=== PATIENT | male | born 1990 | race Caucasian/White ===

== ENCOUNTER 2017-04-05 12:41 | Emergency (ER) | payer MEDICAID ==
[~2017-04-05] VITALS: Ht 177.8 cm; Wt 104.0 kg
[2017-04-05] MEDS ORDERED: KETOROLAC 30MG/ML VIAL IV STA (13:59)
[2017-04-05] MEDS ORDERED: SODIUM CHLORIDE 0.9% 1,000 ML IV ONE (13:59)
[2017-04-05] MEDS ORDERED: METOCLOPRAMIDE HCL 10MG/2ML VIAL IV ONE (14:00)
[2017-04-05 14:49] VITALS: BP 117/52
== END 2017-04-05 16:03 | disposition home or self-care (01) ==
LOC: ER 12:41
DX: R51 Headache (principal)
CPT/HCPCS: 96374; 96375; 99284; J1885; J2765; J7030

== ENCOUNTER 2018-03-15 19:12 | Emergency (ER) | payer SELFPAY ==
[~2018-03-15] VITALS: Ht 180.3 cm; Wt 102.0 kg
[2018-03-15] MEDS ORDERED: METOCLOPRAMIDE HCL 5MG TABLET PO ONE (23:45)
[2018-03-15] MEDS ORDERED: KETOROLAC 60MG/2ML VIAL IM ONE (23:45)
[2018-03-16 01:02] VITALS: BP 140/68
== END 2018-03-16 01:03 | disposition home or self-care (01) ==
LOC: ER 21:34
DX: R51 Headache (principal); R03.0 Elevated blood-pressure reading, without diagnosis of hypertension
CPT/HCPCS: 93005; 96372; 99283; J1885; Z7610; J8597

== ENCOUNTER 2020-04-25 08:25 | Emergency (ER) | payer SELFPAY ==
[~2020-04-25] VITALS: Ht 182.9 cm; Wt 109.0 kg
[2020-04-25] MEDS ORDERED: CYCLOBENZAPRINE 10MG TABLET PO ONE (09:15)
[2020-04-25] MEDS ORDERED: KETOROLAC 30MG/ML VIAL IM ONE (09:15)
[2020-04-25] MEDS ORDERED: HYDROCODONE/ACETAMINOPHEN 5/325MG TABLET PO ONE (10:15)
[2020-04-25] MEDS ORDERED: MORPHINE SULFATE 10 MG/ML CPJ IM ONE (11:30)
[2020-04-25] MEDS ORDERED: ONDANSETRON 4MG ODT PO ONE (11:30)
[2020-04-25 12:59] VITALS: BP 124/68
== END 2020-04-25 13:03 | disposition home or self-care (01) ==
LOC: ER 08:38
DX: M54.5 Low back pain (principal)
CPT/HCPCS: 72100; 96372; 99284; J1885; J2270; Q0162

== ENCOUNTER 2020-07-18 16:35 | Emergency (ER) | payer SELFPAY ==
[~2020-07-18] VITALS: Ht 180.3 cm; Wt 111.0 kg
[2020-07-18 16:42] VITALS: BP 151/77
[2020-07-18 18:36] LABS: BASOPHILS % 0.4 % (0.0-2.0); EOSINOPHILS % 0.9 % (0.0-5.0); HEMATOCRIT. 42.5 % (42.0-52.0); HEMOGLOBIN. 14.4 g/dL (14.0-18.0); LYMPHOCYTES % 31.2 % (20.0-50.0); MEAN CORPUSCULAR HEMOGLOBIN 30.7 pg (28.0-32.0); MEAN CORPUSCULAR VOLUME 90.7 fL (80.0-94.0); MEAN PLATELET VOLUME 8.3 fl (7.4-10.4); NEUTROPHILS % 57.5 % (40.0-76.0); PLATELET 261 x1000/uL (130-400); RED BLOOD CELL COUNT 4.69 mill/uL (4.7-6.1); RED CELL DISTRIBUTION WIDTH 12.2 % (11.6-14.6)
[2020-07-18 18:38] LABS: CHLORIDE 106 mEq/L (98-107)
== END 2020-07-18 20:36 | disposition home or self-care (01) ==
LOC: ER 16:35
DX: R07.89 Other chest pain (principal); I10 Essential (primary) hypertension
CPT/HCPCS: 36415; 80048; 84484; 85025; 93005; 99284